=== PATIENT | female | born 1975 | race Caucasian/White ===

== ENCOUNTER 2018-10-12 10:44 | Inpatient (IN) ==
[2018-10-12] MEDS ORDERED: *HR* OxyCODONE/APAP 5/325 TABLET PO PRN (11:07)
[2018-10-12] MEDS ORDERED: *HR* Promethazine 25 MG/ML VIAL IVP PRN (11:07)
[2018-10-12] MEDS ORDERED: *HR* Labetalol 20 MG/4 ML SYRINGE IVP PRN (11:07)
[2018-10-12] MEDS ORDERED: Albuterol 2.5 MG/3 ML NEBULIZER IH ONE (11:16)
[2018-10-12] MEDS ORDERED: CeFAZolin Syr 2,000MG/20 ML 2,000 MG/20 ML SYRINGE IVPB ONE (11:16)
--- NOTE | 2018-10-12 11:19 | Anesthesia Evaluation PreOp ---
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 History: Denies Any Significant HX Anesthesia History: No Prior Anesthetic Complications, Past Anesthesia (L TKR, left knee manipulation, vadim, gastric sleeve) Alcohol Use: none Drug use: none Medications and Allergies Ibuprofen [Motrin] 600 mg PO Q8HR #20 tab 05/18/18 [Rx] Allergy/AdvReac Type Severity Reaction Status Date / Time Sulfa (Sulfonamide Allergy Wheezing Verified 09/20/18 11:06 Antibiotics) acetaminophen [From Vicodin] AdvReac Migraine Verified 10/12/18 11:13 hydrocodone [From Vicodin] AdvReac Migraine Verified 10/12/18 11:13 - Meds/Allergy Pre-op Review Medications Reviewed: Yes Allergies Reviewed: Yes Beta Blockers on Current Med List: No Anesthesia Results - Labs Laboratory Tests 11/25/15 09/20/18 09/20/18 01:38 11:15 11:15 WBC 7.3 Hgb 12.6 Hct 40.4 Plt Count 260 PT 11.0 INR 1.0 APTT 32.0 Sodium Potassium Chloride Carbon Dioxide BUN Creatinine Glucose 88 Serum , Qual 09/20/18 09/20/18 11:15 11:15 WBC Hgb Hct Plt Count PT INR APTT Sodium 141 Potassium 4.5 Chloride 110 H Carbon Dioxide 26 BUN 16 Creatinine 0.75 Glucose Serum , Qual Negative Anesthesia Exam Vital Signs/O2 Sat, Most Current Temp Pulse Resp BP Pulse Ox 98.0 F 68 18 88/54 100 10/12/18 11:15 10/12/18 11:15 10/12/18 11:15 10/12/18 11:15 10/12/18 11:15 Weight: 97kg NPO (# of Hours): >8 - HEENT Pupil (Motor): Pupils equal, EOMI Mallampati: II Teeth: Normal Oral Opening: Greater than 3 - ACQUISITION ADVISOR LOC: Oriented ACQUISITION ADVISOR Motor: Normal RUE, Normal LUE, Normal RLE, Normal LLE, Normal Face ACQUISITION ADVISOR Sensory: Normal: RUE, LUE, RLE, LLE, Face - Cardiac Rhythm: Regular - Pulmonary Breath Sounds: bilateral Clear Respiratory Effort: Symmetrical Anesthesia Assess/Plan ASA Score: 2 Level of consciousness: Cooperative Anesthetic Plan: General (pt refuses spinal) Regional Nerve Block Plan: Adductor canal (Left), IPACK (Left) Monitoring Plan: Standard Monitors Recovery Plan: PACU
[2018-10-12] MEDS ORDERED: Ringers Solution, Lactated 1,000 ML IVC SCH ×2 (11:30→15:12)
[2018-10-12] MEDS ORDERED: Acetaminophen IV 1,000 MG/100 ML INFUS..BTL ONE (11:31)
--- NOTE | 2018-10-12 11:40 | History & Physical Report ---
Date of Encounter: 10/12/18 Time of Encounter: 11:39 24 Hour HP Update - Instructions Instructions: If the History and Physical is less than 30 days old and was completed prior to A.M. admission and or procedure and has NOT been updated on calendar day of procedure please complete this update prior to performing procedure. - Update Patient reports changes in Medical Condition: No Changes in examination, assessment, or condition: No Changes in Medication: No Preop tests/diagnostics Reviewed: Yes Surgery Remains Indicated: Yes Consent for Planned Operative Procedure(s) Verified: Yes - Pre-Operative Checklist Preoperative Checklist Indicated: No Prophylactic Antibiotic Ordered: Yes Is VTE Prophylaxis Indicated?: Yes
[2018-10-12] MEDS ORDERED: *HR* FentaNYL (PF) 100 MCG/2 ML VIAL ONE ×3 (11:45→14:08)
[2018-10-12] MEDS ORDERED: *HR* Midazolam HCl 2 MG/2 ML VIAL ONE (11:48)
[2018-10-12] MEDS ORDERED: Dexamethasone 4 MG/ML VIAL ONE (11:48)
[2018-10-12] MEDS ORDERED: *HR* Propofol 200 MG/20 ML VIAL IVP ONE (11:48)
[2018-10-12] MEDS ORDERED: Lidocaine -MPF 2% 2 ML VIAL ONE (11:48)
[2018-10-12] MEDS ORDERED: Ondansetron 4 MG/2 ML VIAL ONE (11:48)
[2018-10-12] MEDS ORDERED: Bupivacaine/Clonidine Syringe 1 EACH SYRINGE ONE (11:49)
[2018-10-12] MEDS ORDERED: ROPIVACAINE HCL/PF 0.5% 30 ML VIAL ONE (11:49)
[2018-10-12] MEDS ORDERED: Ethanol\\Acetic Acid\\Na Ace\\Ben 1,000 ML IRRIG.SOLN IR ONE ×2 (12:14→12:15)
[2018-10-12] MEDS ORDERED: Tranexamic Acid 1,000 MG/10 ML VIAL ONE (12:46)
--- NOTE | 2018-10-12 13:22 | Anesthesia Procedures ---
Addendum entered and electronically signed by Aida Felton CRNA 10/14/18 17:59: KEEP GETTING RECORDS BACK ONCE I SIGN THEM, J[facility] [place] PROBLEM. Original Note: Date of Encounter: 10/12/18 Time of Encounter: 12:30 Procedures: Anesthesia - Nerve Block Procedure Date: 10/12/18 Time: 12:30 Allergies/Adv Reactions: SULFA VICODIN STEROIDS STATED "SHE CAN TAKE DECADRON" Pre-op Diagnosis: LEFT TOTAL KNEE ARTHRITIS Surgical Procedure: LEFT TOTAL KNEE REVISION Checklist: Correct Patient Identifier, Correct procedure, History checked Correct side: Left Blood Thinner: No Monitor Applied: EKG, BP, Pulse Oximetry Supplemental Oxygen via Nasal Cannula (L/min): 2 Sedation: Versed (mg): 2 Sedation: Fentanyl (mcg): 100 Indication: Post Op Analgesia Pre-op Neuro Deficits: No Block Type: Other (ADDUCTOR +IPACK ) Catheter placed: No Sterile Technique: Yes Ultrasound used: Yes Anatomy identified: Yes Visual spread of Local: Yes Neuro Stimulation: No Blood on Needle Aspiration: No Smooth Injection of Local: Yes Pain with Injection of Local: No Prep: Chlorhexadine Needle: 21 x 100 mm Stimuplex Local: 0.25% Bupivicaine w/Clonidine 20 mcg/cc, Ropivacaine Volume (cc): 50 Number of Attempts: 1 Complications: None/effective block Vitals: Vital Signs - Last 8 Hours Temp Pulse Resp BP Pulse Ox 10/12/18 12:37 59 14 98/56 100 10/12/18 12:10 75 16 99/56 97 10/12/18 11:15 98.0 F 68 18 88/54 100 10/12/18 11:02 18 100 Intake and Output 10/11/18 10/12/18 10/12/18 23:59 07:59 15:59 Intake Total 20 / 20 Balance 20 / 20 Intake: IV Fluids 20 / 20 Ancef Syringe 2,000 MG/20 ML 2, 20 / 20 000 mg In 20 ml @ 200 mls/hr IVPB PREOP ONE Rx#:[id number] Other: Weight 97.522 kg Patient Weight 10/12/18 23:59 Weight 97.522 kg Comments: BLOCK PERFORMED BY SRNA
--- NOTE | 2018-10-12 13:43 | Orthopedic Operative Note ---
Date of procedure: 10/12/18 Pre-op diagnosis: Left knee instability aseptic loosening total knee Post-op diagnosis: same Procedure: Procedure: Left revision total knee Estimated blood loss: 300 Hardware: Metal and polyethylene replacement. Fercho femur: 4 Tibia: 6 TS: 16 patella: 36 Exam Under anesthesia: Significant mid flexion varus valgus instability well- healed incision no swelling or erythema hyperextension Procedural Notes: Aseptic loosening femoral component. Operative procedure: The patient was brought to the operating room and placed on the operating room table. After general anesthesia was administered the operative knee was examined. Findings were noted in the exam under anesthesia. The operative extremity was prepped and draped in sterile surgical fashion. The patient received IV antibiotics prior to skin incision. A standard midline incision was made centered over the patella through the old incision. The incision was made through the skin and subcutaneous tissue. A medial pa rapatellar tendon approach was performed. Care was taken to preserve tissue along the medial aspect of the patella. And to protect the patella tendon. The deep MCL was released off the medial tibia. The infra patella fat pad was excised. Fluid was encountered this was normal joint fluid, Cultures were obtained and gram . The knee was brought into flexion the poly-was removed. The interface between the patient's femoral component and distal femur were disrupted with a osteotome and oscillating saw. Femoral component was removed removed without significant bone loss. This was done with minimal effort, the femoral component was loose. Attention was then turned to the tibial component. The same technique was used to remove the tibial component by disrupting the interface between the patient's tibial component and the patients proximal tibia. The tibial component was removed without significant bone loss. The tibia was sized to a 6 tibial tray was seated and prepared with the large drill followed by the fin cutter. Trial had good fit and fixation. The femur was sized to a 4, The finishing guide was seated and the box cut was made. The trial had good fit and fixation. Both trial components were seated and the 16 constrained Jeannie was seated and secured. The knee had full flexion and full extension with no instability. Patella was everted. Patella was transected below the patella component. Patella was sized to 36. Guide was seated local drilled. Patella had excellent tracking. The trial components were removed. The knee sat for 2 minutes with a antiba cterial solution. It was irrigated out with 2 L of pulse irrigation. The components were assembled on the back table, the tibia cemented first followed by the femur. The 16 constrained liner was seated and secure. The knee was brought to full extension while the cement hardened. The patella was cemented and held in place with patellar holding clamp. After the cement hardened the knee was irrigated out again. The PA close the knee. The extensor mechanism was closed with a running #2 Fiberwire suture and a running #2 PDS suture. The deep tissue was irrigated and closed deep with #1 PDS suture superficially with 0 PDS suture. The skin was closed with skin elizabeth. The patient was placed in a sterile dressing and postoperative brace. They were extubated and transferred to recovery room in stable condition. Anesthesia: GETA Surgeon: Sukhdev Lu Was there an showroom sales assistant present: No Estimated blood loss (cc): 300 Condition: stable Disposition: PACU
--- NOTE | 2018-10-12 14:22 | Discharge Summary ---
Orders not resulted at time of discharge: Pending orders 10/12/18 Culture,Anaerobic [RM] Routine Culture,Wound [RM] Routine 10/12/18 00:01 XR knee LT 1-2V [XR] Routine 10/12/18 12:20 US anesthesia pain block [US] Stat 10/12/18 13:14 Culture,Anaerobic [RM] Stat 10/12/18 13:24 Culture,Wound [RM] Stat Gram Stain [RM] Stat 10/12/18 13:41 Surgical Pathology [PTH] Routine 10/12/18 14:16 H/H [Hemoglobin and Hematocrit] [HEME] Stat Date of Encounter: 10/14/18 Time of Encounter: 10:59 - Discharge Diagnosis (1) Status post revision of total replacement of left knee Priority: Primary Status: Acute (2) Loosening of knee joint prosthesis Priority: Primary Status: Acute Qualifiers: Encounter type: initial encounter Qualified Code(s): T84.038A - Mechanical loosening of other internal prosthetic joint, initial encounter; Z96.659 - Presence of unspecified artificial knee joint (3) Obesity Priority: Secondary Status: Chronic Qualifiers: Obesity type: due to excess calories Obesity classification: adult class 2 (BMI 35 - 39.9) Serious obesity comorbidity presence: without serious comorbidity Body mass index: BMI 35.0-35.9 Qualified Code(s): E66.09 - Other obesity due to excess calories; Z68.35 - Body mass index (BMI) 35.0-35.9, adult (4) Smoker Priority: Secondary Status: Chronic - Hospital Course Hospital course: Ms. Houser is a 43 year old female, POD#. 2 - Revision Left TKR Cultures: No growth to date Patient had uneventful postoperative course. Stable for discharge Allergy to [place], bactrim and steroids Patient seen at bedside, without complaints. A&O x 3 Afebrile, vital signs stable Vital Signs Temp Pulse Resp BP Pulse Ox 10/14/18 10:42 98.3 F 63 14 128/81 98 10/14/18 06:40 97.8 F 78 14 115/74 99 10/14/18 05:23 119/72 10/14/18 03:23 98.2 F 66 15 114/72 99 10/14/18 02:37 98.5 F 75 16 123/74 99 11/15/18 23:17 98.3 F 77 16 114/71 98 10/13/18 20:30 96 10/13/18 18:33 98.6 F 70 16 116/75 96 10/13/18 12:34 98.2 F 62 18 Intake and Output 10/13/18 10/14/18 10/14/18 23:59 07:59 15:59 Intake Total 240 / 240 240 / 240 Balance 240 / 240 240 / 240 Intake: Oral 240 / 240 240 / 240 Other: Meal Breakfast Percent of Meal Consumed 100% # Voids 1 1 Weight 99 kg . Labs reviewed. H/H - stable, asymptomatic Short CBC 10/14/18 Range/Units 05:35 Hgb 11.0 L (11.5-15.4) g/dL Hct 35.3 (35.3-44.9) % BMP 10/14/18 Range/Units 05:35 Sodium 139 (136-145) mEq/L Potassium 3.8 (3.5-5.1) mEq/L Chloride 110 H (98-107) mEq/L Carbon Dioxide 21 L (23-29) mEq/L BUN 15 (6-20) mg/dL Creatinine 0.70 (0.60-1.20) mg/dL Glucose 142 H (70-105) mg/dL Calcium 8.3 L (8.6-10.3) mg/dL Pain control: adequate 10/13 - Added Gabapentin 300mg BID 10/14 - Increased Gabapenting 600mg TID, added flexeril 5mg - ERx'ed Participating in PT. All questions and concerns addressed. Educated on use of incentive spirometer. Encouraged ambulation and proper hydration. Patient educated on post-operative restrictions and post-operative care. Assessment and plan: Continue with postoperative care Discharge plan: Home, discharge today - discussed HH as an option. - Time Spent with Patient Total time spent providing and/or coordinating discharge services: - Discharge Medications Prescriptions: Cyclobenzaprine HCl 5 mg PO TID PRN 7 Days #21 tablet PRN Reason: Spasms Gabapentin [Neurontin] 600 mg PO TID #21 capsule Home Medications: Aspirin Enteric Coated [Aspirin EC] 325 mg PO BID #20 tablet. 10/12/18 [Rx] OxyCODONE Immed Rel [Roxicodone 5 MG] 5 mg PO Q6HR PRN 7 Days #28 tablet 10/12/18 [Rx] Cyclobenzaprine HCl 5 mg PO TID PRN 7 Days #21 tablet 10/14/18 [Rx] Gabapentin [Neurontin] 600 mg PO TID #21 capsule 10/14/18 [Rx] Ibuprofen [Motrin] 600 mg PO Q8HR tablet 10/14/18 [Rx] Lidocaine Patch [Lidoderm 5% patch] 1 each TP DAILY adh..patch 10/14/18 [Rx] Allergies/Adverse Reactions: Allergy/AdvReac Type Severity Reaction Status Date / Time Sulfa (Sulfonamide Allergy Wheezing Verified 09/20/18 11:06 Antibiotics) acetaminophen [From Vicodin] AdvReac Migraine Verified 10/12/18 11:13 hydrocodone [From Vicodin] AdvReac Migraine Verified 10/12/18 11:13 Date of admission: 10/12/18 Primary care physician: Jarett Butler MD Anticipated date of discharge: 10/14/18 Labs on day of discharge: Labs from last 24 hours 10/12/18 11:14 POC Urine HCG, Qual Negative - Patient Status Disposition: Home, Self-Care Condition: Good Functional capacity at discharge: uses cane/walker Overall status at discharge: patient is progressing back to baseline - Discharge Instructions Follow Up With: Jarett Butler MD [Primary Care Provider] -
[2018-10-12] MEDS: *HR* HYDROmorphone (PF) 1 MG/ML SYRINGE IVP PRN ×2 (14:24→14:30)
[2018-10-12 14:38] LABS: Hematocrit 37.6 % (35.3-44.9); Hemoglobin 12.4 g/dL (11.5-15.4)
--- NOTE | 2018-10-12 15:09 | Anesthesia Evaluation Post Op ---
Date of Encounter: 10/12/18 Time of Encounter: 15:08 - Vital Signs Vital Signs: Vital Signs/O2 Sat, Most Current Temp Pulse Resp BP Pulse Ox 98.4 F 74 12 127/79 100 10/12/18 14:52 10/12/18 14:52 10/12/18 14:52 10/12/18 14:52 10/12/18 14:52 - Lungs Lungs: Clear Ascult./Percussion - Airway Airway: Non-obstructed - Cardiovascular Regular Rate - Mental Status Mental Status: Alert & Oriented, Answers Appropriately - Pain Pain Scale used: Numeric (1 - 10) (tolerabel) - Nausea Vomiting Nausea Vomiting: Not Present - Hydration Hydration: Tolerates oral liquids - Discharge PostOp Status: Transfer Patient to floor
[2018-10-12] MEDS ORDERED: MOM Conc 10 ML UD.LIQ PO PRN (15:12)
[2018-10-12] MEDS ORDERED: Naloxone 0.4 MG/ML INJ IVP PRN (15:12)
[2018-10-12] MEDS ORDERED: Sennosides 8.6 MG TABLET PO PRN (15:12)
[2018-10-12] MEDS ORDERED: Ondansetron 4 MG/2 ML VIAL IVP PRN (15:12)
[2018-10-12] MEDS ORDERED: Temazepam 15 MG CAPSULE PO PRN (15:12)
[2018-10-12] MEDS: *HR* OxyCODONE Immed Rel 5 MG TABLET PO PRN ×2 (15:32→20:02)
[2018-10-12] MEDS: Ibuprofen 600 MG TABLET PO SCH (16:59)
[2018-10-12] MEDS ORDERED: *HR* Enoxaparin 30 MG/0.3 ML SYRINGE SQ SCH (18:00)
[2018-10-12] MEDS: *HR* Enoxaparin 30 MG/0.3 ML SYRINGE SQ SCH (19:03)
[2018-10-12] MEDS: traMADol 50 MG TABLET PO PRN (22:46)
[2018-10-13] MEDS: *HR* OxyCODONE Immed Rel 5 MG TABLET PO PRN ×4 (01:13→19:47)
[2018-10-13] MEDS: traMADol 50 MG TABLET PO PRN (04:12)
[2018-10-13] MEDS: *HR* Enoxaparin 30 MG/0.3 ML SYRINGE SQ SCH ×2 (04:12→17:30)
[2018-10-13 05:11] LABS: Hematocrit 35.7 % (35.3-44.9); Hemoglobin 11.8 g/dL (11.5-15.4)
[2018-10-13 05:31] LABS: BUN/Creatinine Ratio 23 (6-26); Blood Urea Nitrogen 16 mg/dL (6-20); Calcium 8.8 mg/dL (8.6-10.3); Carbon Dioxide 21 mEq/L (23-29); Chloride 110 mEq/L (98-107); Glucose 241 mg/dL (70-105); Osmolality,Calculated 293 (280-300); Potassium 4.4 mEq/L (3.5-5.1); Sodium 137 mEq/L (136-145); eGFR For Non-African Americans > 60 (> 60)
--- NOTE | 2018-10-13 07:49 | Orthopedics Progress Note ---
Date of Encounter: 10/13/18 Time of Encounter: 07:49 Subjective Interval history: Patient was seen this morning doing well without complaints. Afebrile vital signs stable. Operative extremity: Neurovascularly intact Dressing clean dry and intact Calves nontender Assessment and plan: Continue with postoperative care Objective Vital signs: Vital Signs Temp Pulse Resp BP Pulse Ox 10/13/18 06:25 98.2 F 56 18 98/63 98 10/13/18 04:06 98.0 F 55 16 94/58 98 10/13/18 00:30 98.0 F 57 16 95/61 98 10/12/18 18:30 98.6 F 70 16 101/65 98 10/12/18 17:22 98.5 F 92 16 93/62 100 10/12/18 16:07 97.9 F 74 14 98/64 95 10/12/18 15:38 98.0 F 100 19 97/58 99 10/12/18 15:12 98.0 F 105 20 114/81 100 10/12/18 14:52 98.4 F 74 12 127/79 100 10/12/18 14:42 98.4 F 96 15 115/63 99 10/12/18 14:32 71 13 111/66 99 10/12/18 14:22 75 14 122/67 100 10/12/18 14:12 98.3 F 67 12 118/60 100 10/12/18 12:37 59 14 98/56 100 10/12/18 12:10 75 16 99/56 97 10/12/18 11:15 98.0 F 68 18 88/54 100 10/12/18 11:02 18 100 Intake and Output 10/12/18 10/12/18 10/13/18 15:59 23:59 07:59 Intake Total 20 / 20 220 / 220 Output Total 300 / 300 300 / 300 Balance -280 / -280 -80 / -80 Intake: IV Fluids 20 / 20 100 / 100 Ancef Syringe 2,000 MG/20 ML 2, 20 / 20 000 mg In 20 ml @ 200 mls/hr IVPB PREOP ONE Rx#:[id number] Ancef 2,000 MG In 0.9 % Sodium 100 / 100 Chloride 100 ML @ 200 mls/hr IVPB Q8H [facility] Rx#:[id number] Oral 120 / 120 Output: Urine 300 / 300 Estimated Blood Loss 300 / 300 Other: # Voids 1 1 Weight 97.522 kg 97.5 kg Patient Weight 10/13/18 23:59 Weight 97.5 kg - Labs CBC & BMP: 10/13/18 04:04 10/13/18 04:04 Labs: Abnormal lab results Chloride 110 mEq/L (98-107) H 10/13/18 04:04 Carbon Dioxide 21 mEq/L (23-29) L 10/13/18 04:04 Glucose 241 mg/dL (70-105) H 10/13/18 04:04 Consult Discharge Plan - Plan Referrals: Jarett Butler MD [Primary Care Provider] -
[2018-10-13] MEDS: *HR* OxyCODONE/APAP 5/325 TABLET PO PRN ×3 (09:39→22:01)
--- NOTE | 2018-10-13 11:46 | Event Note ---
Date of Encounter: 10/13/18 Time of Encounter: 11:45 PCR - POD#. 1 - Revision Left TKR Allergy to [place], bactrim and steroids Patient seen at bedside, without complaints. A&O x 3 Afebrile, vital signs stable. Labs reviewed. H/H - stable, asymptomatic Pain control: adequate 10/13 - Added Gabapentin 300mg BID Participating in PT. All questions and concerns addressed. Educated on use of incentive spirometer. Encouraged ambulation and proper hydration. Patient educated on post-operative restrictions and post-operative care. Assessment and plan: Continue with postoperative care Discharge plan: Home, discharge Wednesday Short CBC 10/13/18 10/12/18 Range/Units 04:04 14:25 Hgb 11.8 12.4 (11.5-15.4) g/dL Hct 35.7 37.6 (35.3-44.9) % BMP 10/13/18 Range/Units 04:04 Sodium 137 (136-145) mEq/L Potassium 4.4 (3.5-5.1) mEq/L Chloride 110 H (98-107) mEq/L Carbon Dioxide 21 L (23-29) mEq/L BUN 16 (6-20) mg/dL Creatinine 0.70 (0.60-1.20) mg/dL Glucose 241 H (70-105) mg/dL Calcium 8.8 (8.6-10.3) mg/dL Vital Signs Temp Pulse Resp BP Pulse Ox 10/13/18 10:52 98.4 F 86 18 92/57 96 10/13/18 10:03 98.3 F 63 16 95/62 98 10/13/18 06:25 98.2 F 56 18 98/63 98 10/13/18 04:06 98.0 F 55 16 94/58 98 10/13/18 00:30 98.0 F 57 16 95/61 98 10/12/18 18:30 98.6 F 70 16 101/65 98 10/12/18 17:22 98.5 F 92 16 93/62 100 10/12/18 16:07 97.9 F 74 14 98/64 95 10/12/18 15:38 98.0 F 100 19 97/58 99 10/12/18 15:12 98.0 F 105 20 114/81 100 10/12/18 14:52 98.4 F 74 12 127/79 100 10/12/18 14:42 98.4 F 96 15 115/63 99 10/12/18 14:32 71 13 111/66 99 10/12/18 14:22 75 14 122/67 100 10/12/18 14:12 98.3 F 67 12 118/60 100 10/12/18 12:37 59 14 98/56 100 10/12/18 12:10 75 16 99/56 97 Intake and Output 10/12/18 10/13/18 10/13/18 23:59 07:59 15:59 Intake Total 220 / 220 100 / 100 Output Total 300 / 300 Balance -80 / -80 100 / 100 Intake: IV Fluids 100 / 100 Ancef 2,000 MG In 0.9 % Sodium 100 / 100 Chloride 100 ML @ 200 mls/hr IVPB Q8H [facility] Rx#:[id number] Oral 120 / 120 100 / 100 Output: Urine 300 / 300 Other: Meal Breakfast Percent of Meal Consumed 50% # Voids 1 1 1 Weight 97.5 kg Patient Weight 10/13/18 23:59 Weight 97.5 kg
[2018-10-13] MEDS: Ibuprofen 600 MG TABLET PO SCH ×4 (12:36→23:34)
[2018-10-13] MEDS: Gabapentin 300 MG CAPSULE PO SCH ×2 (14:49→20:30)
[2018-10-14] MEDS: *HR* OxyCODONE Immed Rel 5 MG TABLET PO PRN ×3 (00:44→11:34)
[2018-10-14] MEDS: *HR* OxyCODONE/APAP 5/325 TABLET PO PRN ×3 (02:35→14:52)
[2018-10-14] MEDS: *HR* Enoxaparin 30 MG/0.3 ML SYRINGE SQ SCH (05:24)
[2018-10-14 06:28] LABS: Hematocrit 35.3 % (35.3-44.9)
--- NOTE | 2018-10-14 06:44 | Orthopedics Progress Note ---
Date of Encounter: 10/14/18 Time of Encounter: 06:44 Subjective Interval history: Patient was seen this morning doing well without complaints. Afebrile vital signs stable. Operative extremity: Neurovascularly intact Dressing clean dry and intact Calves nontender Assessment and plan: Continue with postoperative care Gram stain negative hematocrit 35 potential discharged today Objective Vital signs: Vital Signs Temp Pulse Resp BP Pulse Ox 10/14/18 06:40 97.8 F 78 14 115/74 99 10/14/18 05:23 119/72 10/14/18 03:23 98.2 F 66 15 114/72 99 10/14/18 02:37 98.5 F 75 16 123/74 99 10/13/18 23:17 98.3 F 77 16 114/71 98 10/13/18 20:30 96 10/13/18 18:33 98.6 F 70 16 116/75 96 10/13/18 12:34 98.2 F 62 18 10/13/18 10:52 98.4 F 86 18 92/57 96 10/13/18 10:03 98.3 F 63 16 95/62 98 Intake and Output 10/13/18 10/13/18 10/14/18 15:59 23:59 07:59 Intake Total 200 / 200 240 / 240 Output Total 900 / 900 Balance -700 / -700 240 / 240 Intake: Oral 200 / 200 240 / 240 Output: Urine 900 / 900 Other: Meal Lunch Percent of Meal Consumed 95% # Voids 2 1 Weight 99 kg - Labs CBC & BMP: 10/14/18 05:35 10/13/18 04:04 Labs: Abnormal lab results Hgb 11.0 g/dL (11.5-15.4) L 10/14/18 05:35 Chloride 110 mEq/L (98-107) H 10/13/18 04:04 Carbon Dioxide 21 mEq/L (23-29) L 10/13/18 04:04 Glucose 241 mg/dL (70-105) H 10/13/18 04:04 Consult Discharge Plan - Plan Referrals: Jarett Butler MD [Primary Care Provider] -
[2018-10-14 06:47] LABS: BUN/Creatinine Ratio 21 (6-26); Blood Urea Nitrogen 15 mg/dL (6-20); Calcium 8.3 mg/dL (8.6-10.3); Carbon Dioxide 21 mEq/L (23-29); Chloride 110 mEq/L (98-107); Glucose 142 mg/dL (70-105); Osmolality,Calculated 291 (280-300); Potassium 3.8 mEq/L (3.5-5.1); Sodium 139 mEq/L (136-145); eGFR For Non-African Americans > 60 (> 60)
[2018-10-14] MEDS: Gabapentin 300 MG CAPSULE PO SCH ×2 (07:56→14:52)
[2018-10-14] MEDS: Ibuprofen 600 MG TABLET PO SCH (07:57)
--- NOTE | 2018-10-14 11:08 | Physician Discharge Referral ---
Home Health/Hosp Referral Info Transfer to: Home Health Attending Provider: Provider in Charge Post Discharge: PCP - Diagnosis (1) Status post revision of total replacement of left knee Priority: Primary Status: Acute (2) Loosening of knee joint prosthesis Priority: Primary Status: Acute (3) Obesity Priority: Secondary Status: Chronic (4) Smoker Priority: Secondary Status: Chronic - Respiratory Orders None Smoking Cessation: Smoking cessation has been advised. For more information, call the [place] Tobacco Quit Line at 5-122-GSDP-NOW. - Diet/Nutrition Diet/Nutrition Orders: Regular - Activity Activity Orders: Ambulate, Walker - Services Needed Following services are medically necessary services: Nursing, Home Health Aide, Physical Therapy, Occupational Therapy Other Treatments: Opsite dressing, leave intact until first post-operative visit. If dressing becomes >50% saturated, contact office, remove dressing and place appropriate dressing in its place. Do not allow for dressing to get wet. Zipline in place, plan to remove at post-operative day #14-16. Total Joint Precautions x 6 weeks Apply cold therapy wrap 3-6x/day for 20 minutes at a time. Encourage ambulation throughout the day Use Incentive spirometer 10x/hour. Elevate affected extremity above heart as tolerated. Brace: Wear knee immobilizer at night until first post-operative appt. - Transfer Medications Prescriptions: Cyclobenzaprine HCl 5 mg PO TID PRN 7 Days #21 tablet PRN Reason: Spasms Gabapentin [Neurontin] 600 mg PO TID #21 capsule Home Medications: Aspirin Enteric Coated [Aspirin EC] 325 mg PO BID #20 tablet. 10/12/18 [Rx] OxyCODONE Immed Rel [Roxicodone 5 MG] 5 mg PO Q6HR PRN 7 Days #28 tablet 10/12/18 [Rx] Cyclobenzaprine HCl 5 mg PO TID PRN 7 Days #21 tablet 10/14/18 [Rx] Gabapentin [Neurontin] 600 mg PO TID #21 capsule 10/14/18 [Rx] Ibuprofen [Motrin] 600 mg PO Q8HR tablet 10/14/18 [Rx] Lidocaine Patch [Lidoderm 5% patch] 1 each TP DAILY adh..patch 10/14/18 [Rx] Allergies/Adverse Reactions: Allergy/AdvReac Type Severity Reaction Status Date / Time Sulfa (Sulfonamide Allergy Wheezing Verified 09/20/18 11:06 Antibiotics) acetaminophen [From Vicodin] AdvReac Migraine Verified 10/12/18 11:13 hydrocodone [From Vicodin] AdvReac Migraine Verified 10/12/18 11:13 Certification: Further, I certify that my clinical findings support that this patient is homebound (i.e. absences from home require considerable and taxing effort and are for medical reasons or tenriism services or infrequently or short duration when for other reasons) because: Homebound Reason: Post-surgery restriction and or conditions limit ability to leave home Attestation: My signature below is to certify that this patient is under my care and that I, or nurse practitioner, or a physician's assistant family teacher working with me, has a [id number] encounter with this patient.
[2018-10-14 16:36] VITALS: BP 116/81
[2018-10-14] MEDS: traMADol 50 MG TABLET PO PRN (16:43)
== END 2018-10-14 17:05 | disposition home or self-care (01) | DRG 302 ==
LOC: SAMDAY 10:44 → 3NENU 15:03
PROVIDERS: ADMIT Orthopaedic Surgery; ATTEND Orthopaedic Surgery